=== PATIENT | female | born 1950 | race Caucasian/White ===

== ENCOUNTER 2016-06-10 09:39 | Emergency (ER) | payer OTHER, BC ==
[2016-06-10 09:45] VITALS: PULSE 88; TEMP 97.8; BMI 25.6
[2016-06-10] MEDS ORDERED: DIPHTH,PERTUSS(ACELL),TET 0.5 ML DISP.SYRIN IM ONE (10:43)
--- NOTE | 2016-06-10 10:48 | PDOC ---
[id number] TICK BITE Time Seen by Provider: 06/10/16 10:12 History Source: Patient Exam Limitations: No Limitations - History of Present Illness Initial Comments: 06/10/16 19:58 MY CHIEF COMPLAINT: piece of tick rt. mid abdomen History of Present ILLNESS: She is a 66-year-old female with history of hypertension here today due to finding a tick on her body 2 days ago. Patient reports that it could have been there since 06/06/2016 when she was working in her garden. Patient tried to remove the tick however tiny piece of it was remaining. Patient thinks that the tick could have been there greater than 48 hours and was engorged. Patient denies any rash. Timing/Duration: other (tick bite rt. lateral abdomen tiny piece remaining ) Severity: mild Associated Symptoms: reports: other (rt. lateral abdomen tiny piece bite tick embedded ) Past History - Past Medical History Allergies/Adverse Reactions: Allergies Allergy/AdvReac Type Severity Reaction Status Date / Time Penicillins Allergy Verified 06/10/16 09:40 Home Medications: Ambulatory Orders Hydrochlorothiazide [Hctz -] 12.5 mg PO DAILY 11/15/15 Atorvastatin Ca [Lipitor] 20 mg PO HS 06/10/16 Doxycycline Hyclate [Vibramycin -] 200 mg PO ONCE #2 cap 06/10/16 Anemia: No Asthma: No Cancer: No Cardiac Disorders: No CVA: No COPD: No CHF: No Dementia: No Diabetes: No GI Disorders: No Disorders: No HTN: Yes Hypercholesterolemia: Yes Liver Disease: No Seizures: No Thyroid Disease: No - Surgical History Abdominal Surgery: No Appendectomy: No Cardiac Surgery: No Cholecystectomy: No Lung Surgery: No Neurologic Surgery: No Orthopedic Surgery: Yes (ARTHROSCOPY) - Psycho/Social/Smoking Cessation Hx Anxiety: No Suicidal Ideation: No Smoking History: Never smoked Have you smoked in the past 12 months: No Information on smoking cessation initiated: No Hx Alcohol Use: No Drug/Substance Use Hx: No Substance Use Type: None Hx Substance Use Treatment: No Review of Systems - Review of Systems Able to Perform ROS?: Yes Constitutional: No: Symptoms Reported HEENTM: No: Symptoms Reported Respiratory: No: Symptoms reported Cardiac (ROS): No: Symptoms Reported ABD/GI: No: Symptoms Reported : No: Symptoms Reported Musculoskeletal: No: Symptoms Reported Integumentary: Yes: Other (tiny piece of tick remaining rt. lateral abdomen slightly raised erythematous area surrounding approx 1 cm diameter) *Physical Exam - Vital Signs Last Vital Signs Temp Pulse Resp BP Pulse Ox 97.8 F 88 18 160/100 100 06/10/16 09:41 06/10/16 09:41 06/10/16 09:41 06/10/16 09:41 06/10/16 09:41 - Physical Exam General Appearance: Yes: Appropriately Dressed Respiratory/Chest: positive: Lungs Clear, Normal Breath Sounds Cardiovascular: positive: Regular Rhythm, Regular Rate, S1, S2 Integumentary: positive: Other (area of erythema slightly raised approx 1 cm diameter, with tiny piece of tick remaining) Neurologic: positive: Alert, Normal Response, Responsive Procedures - Consent Consent obtained: From Patient - Additional Procedures Progress: 06/10/16 10:52 rt. lateral abdomen slightly raised 1 cm diameter with tiny piece of tick remaining, cleansed with betadine tiny piece of tick removed with 18 gauge of needle than cleansed with Betadine and normal saline 0.9%. Dried 06/10/16 10:53 06/10/16 20:02 Medical Decision Making - Medical Decision Making 06/10/16 20:01 She is a 66-year-old female with history of hypertension here today due to finding a tick on her body 2 days ago. Patient reports that it could have been there since 06/06/2016 when she was working in her garden. Patient tried to remove the tick however tiny piece of it was remaining. Patient thinks that the tick could have been there greater than 48 hours and was engorged. Patient denies any rash. remaining piece of tick removed rt. mid abdomen PLAN: removed piece tick from mid abdomen doxycycline 200 mg once prophlactically *DC/Admit/Observation/Transfer Diagnosis at time of Disposition: Tick bite of abdominal wall Qualifiers: Encounter type: initial encounter Qualified Code(s): S30.861A - Insect bite ( nonvenomous) of abdominal wall, initial encounter - Discharge Dispostion Disposition: HOME Condition at time of disposition: Stable - Prescriptions Prescriptions: Doxycycline Hyclate [Vibramycin -] 200 mg PO ONCE #2 cap - Referrals Referrals: Shadi Purcell MD [Primary Care Provider] - - Patient Instructions Additional Instructions: Cleanse area were tick bite was with antibacterial soap and water twice daily until healed Follow-up with your primary care provider for further evaluation and treatment Return here if any fever or increased redness or discharge from area where tick bite was removed today Patient voiced understanding of discharge instructions and all questions were answered
[2016-06-10 10:58] VITALS: BP 137/91
== END 2016-06-10 11:15 | disposition home or self-care (01) ==
LOC: JERFT 09:39
PROC: 3E0234Z Introduction of Serum, Toxoid and Vaccine into Muscle, Percutaneous Approach (ICD-10-PCS; principal; 2016-06-10)
DX: S30.861A Insect bite (nonvenomous) of abdominal wall, initial encounter (principal); W57.XXXA Bitten or stung by nonvenomous insect and other nonvenomous arthropods, initial encounter; Y93.H2 Activity, gardening and landscaping; Y92.017 Garden or yard in single-family (private) house as the place of occurrence of the external cause
CPT/HCPCS: 90471; 90715; 99281-25

== ENCOUNTER 2016-09-07 14:25 | Emergency (ER) | payer OTHER, BC ==
[2016-09-07 14:46] VITALS: BP 117/85; PULSE 88; TEMP 98; BMI 25.4
[2016-09-07] MEDS ORDERED: DOXYCYCLINE HYCLATE 100 MG CAPSULE PO ONE ×2 (15:26→15:31)
--- NOTE | 2016-09-07 15:34 | PDOC ---
History of Present Illness - General Chief Complaint: Bite Stated Complaint: TICK BITE Time Seen by Provider: 09/07/16 14:56 History Source: Patient - History of Present Illness Timing/Duration: reports: other Location: reports: other (chest) Respiratory Risk Factors: reports: insect bite Past History - Past Medical History Allergies/Adverse Reactions: Allergies Allergy/AdvReac Type Severity Reaction Status Date / Time Penicillins Allergy Verified 09/07/16 14:46 Home Medications: Ambulatory Orders Hydrochlorothiazide [Hctz -] 12.5 mg PO DAILY 11/15/15 Atorvastatin Ca [Lipitor] 20 mg PO HS 06/10/16 Anemia: No Asthma: No Cancer: No Cardiac Disorders: No CVA: No COPD: No CHF: No Dementia: No Diabetes: No GI Disorders: No Disorders: No HTN: Yes Hypercholesterolemia: Yes Liver Disease: No Seizures: No Thyroid Disease: No - Surgical History Abdominal Surgery: No Appendectomy: No Cardiac Surgery: No Cholecystectomy: No Lung Surgery: No Neurologic Surgery: No Orthopedic Surgery: Yes (ARTHROSCOPY) - Psycho/Social/Smoking Cessation Hx Anxiety: No Suicidal Ideation: No Smoking History: Never smoked Have you smoked in the past 12 months: No Information on smoking cessation initiated: No Hx Alcohol Use: No Drug/Substance Use Hx: No Substance Use Type: None Hx Substance Use Treatment: No Review of Systems - Review of Systems Constitutional: No: Chills, Fever, Malaise, Weakness Neurological: No: Headache, Dizziness *Physical Exam - Vital Signs Last Vital Signs Temp Pulse Resp BP Pulse Ox 98.0 F 88 18 117/85 100 09/07/16 14:42 09/07/16 14:42 09/07/16 14:42 09/07/16 14:42 09/07/16 14:42 - Physical Exam General Appearance: Yes: Appropriately Dressed. No: Apparent Distress HEENT: positive: Normal Voice Neck: positive: Supple Respiratory/Chest: positive: Other (localized erythema to R upper chest). negative: Respiratory Distress Integumentary: positive: Dry, Warm. negative: Rash Neurologic: positive: Fully Oriented, Alert, Normal Mood/Affect Medical Decision Making - Medical Decision Making 09/07/16 15:26 66 yo F, h/o HTN, HLD, presents to ED for evaluation after tick bite. Pt states [place] and 2 days ago, noticed tick embedded in R chest which she was able to remove intact as per pt. Does not known how long tick was embedded in skin. Denies any acute medical complaints at this time. See exam S/p tick bite w/ removal 48 hrs ago Asymptomatic at this time Local erythema to site of bite -1 dose doxy in ED empirically as pt meets all criteria (i.e unsure how long tick was embedded, removal within 72 hrs, etc) 09/07/16 15:37 *DC/Admit/Observation/Transfer Diagnosis at time of Disposition: Tick bite Qualifiers: Encounter type: initial encounter Qualified Code(s): W57.XXXA - Bitten or stung by nonvenomous insect and other nonvenomous arthropods, initial encounter - Discharge Dispostion Disposition: HOME Condition at time of disposition: Good - Patient Instructions Printed Discharge Instructions: How to Remove a Tick Additional Instructions: Continue to follow up with your PMD Return to ED for worsening of symptoms
== END 2016-09-07 15:38 | disposition home or self-care (01) ==
LOC: JERFT 14:25
DX: S20.361A Insect bite (nonvenomous) of right front wall of thorax, initial encounter (principal); W57.XXXA Bitten or stung by nonvenomous insect and other nonvenomous arthropods, initial encounter; Y93.89 Activity, other specified; Y92.89 Other specified places as the place of occurrence of the external cause; I10 Essential (primary) hypertension; E78.00 Pure hypercholesterolemia, unspecified
CPT/HCPCS: 99281-25

== ENCOUNTER 2016-09-22 13:58 | Emergency (ER) | payer OTHER, BC ==
[2016-09-22 14:05] VITALS: BP 135/87; PULSE 96; TEMP 97.8; BMI 28.3
--- NOTE | 2016-09-22 14:38 | PDOC ---
History of Present Illness - General Chief Complaint: Bite Stated Complaint: TICK BITE Time Seen by Provider: 09/22/16 14:31 History Source: Patient Exam Limitations: No Limitations - History of Present Illness Initial Comments: 09/22/16 14:32 CHIEF COMPLAINT: Tick bite to the right posterior leg. HISTORY OF PRESENT ILLNESS: Patient is a 66 y/o female with history of HTN and high cholesterol. Pt presents for treatment for tick bite to the right posterior leg. Patient was able to pull the tick off, body and head intact. Unknown time that tick was on her. No rash or pains noted. Past History - Past Medical History Allergies/Adverse Reactions: Allergies Allergy/AdvReac Type Severity Reaction Status Date / Time Penicillins Allergy Verified 09/07/16 14:46 Home Medications: Ambulatory Orders Hydrochlorothiazide [Hctz -] 12.5 mg PO DAILY 11/15/15 Atorvastatin Ca [Lipitor] 20 mg PO HS 06/10/16 Doxycycline Hyclate 200 mg PO ONCE #2 capsule 09/22/16 Anemia: No Asthma: No Cancer: No Cardiac Disorders: No CVA: No COPD: No CHF: No Dementia: No Diabetes: No GI Disorders: No Disorders: No HTN: Yes Hypercholesterolemia: Yes Liver Disease: No Seizures: No Thyroid Disease: No - Surgical History Abdominal Surgery: No Appendectomy: No Cardiac Surgery: No Cholecystectomy: No Lung Surgery: No Neurologic Surgery: No Orthopedic Surgery: Yes (ARTHROSCOPY) - Psycho/Social/Smoking Cessation Hx Anxiety: No Suicidal Ideation: No Smoking History: Never smoked Have you smoked in the past 12 months: No Information on smoking cessation initiated: No Hx Alcohol Use: No Drug/Substance Use Hx: No Substance Use Type: None Hx Substance Use Treatment: No Review of Systems - Review of Systems Constitutional: No: Symptoms Reported Respiratory: No: Symptoms reported Musculoskeletal: No: Symptoms Reported Integumentary: No: Symptoms Reported, Bruising, Erythema Neurological: No: Symptoms reported Hematologic/Lymphatic: No: Symptoms Reported All Other Systems: Reviewed and Negative *Physical Exam - Vital Signs Last Vital Signs Temp Pulse Resp BP Pulse Ox 97.8 F 96 H 18 135/87 100 09/22/16 14:03 09/22/16 14:03 09/22/16 14:03 09/22/16 14:03 09/22/16 14:03 - Physical Exam General Appearance: Yes: Appropriately Dressed. No: Apparent Distress Neck: negative: Tender lateral, Tender midline Respiratory/Chest: positive: Normal Breath Sounds, Respiratory Distress Lymphatic: negative: Adenopathy Extremity: positive: Normal Capillary Refill, Normal Inspection Integumentary: positive: Normal Color, Other (small puncture wound to the right posterior knee, with no erythema or rash. ). negative: Erythema, Hives, Petechiae, Rash, Swelling, Ecchymosis, Bruising Neurologic: positive: Alert, Normal Mood/Affect Medical Decision Making - Medical Decision Making 09/22/16 14:52 A/P : tick bite, no erythema, edema, rash. No joint pain Tick was on her leg unknown time, could be greater then 36 hours. Will treat with Doxy 200 mg PO x 1. Follow up with infectious disease and PMD. *DC/Admit/Observation/Transfer Diagnosis at time of Disposition: Tick bite Qualifiers: Encounter type: initial encounter Qualified Code(s): W57.XXXA - Bitten or stung by nonvenomous insect and other nonvenomous arthropods, initial encounter - Discharge Dispostion Disposition: HOME Condition at time of disposition: Stable Admit: No - Prescriptions Prescriptions: Doxycycline Hyclate 200 mg PO ONCE #2 capsule - Referrals Referrals: Shadi Purcell MD [Primary Care Provider] - - Patient Instructions Printed Discharge Instructions: How to Remove a Tick Additional Instructions: Recommend follow-up with primary care doctor if rash, joint pain, or any other concerns return to ER
== END 2016-09-22 14:44 | disposition home or self-care (01) ==
LOC: JERFT 13:58
DX: S80.861A Insect bite (nonvenomous), right lower leg, initial encounter (principal); W57.XXXA Bitten or stung by nonvenomous insect and other nonvenomous arthropods, initial encounter; Y93.89 Activity, other specified; Y92.89 Other specified places as the place of occurrence of the external cause; I10 Essential (primary) hypertension; E78.00 Pure hypercholesterolemia, unspecified
CPT/HCPCS: 99281-25

== ENCOUNTER 2016-11-29 12:52 | Emergency (ER) | payer OTHER, BC ==
[2016-11-29 13:02] VITALS: TEMP 97.4; BMI 24.7
--- NOTE | 2016-11-29 13:51 | PDOC ---
History of Present Illness - General Chief Complaint: Bite Stated Complaint: BITE Time Seen by Provider: 11/29/16 13:34 History Source: Patient Exam Limitations: No Limitations - History of Present Illness Initial Comments: CHIEF COMPLAINT: 66 y/o afebrile female with PMH HTN, HLD c/o multiple itchy, painful bee stings. HISTORY OF PRESENT ILLNESS: The patient was working in her garden last night when she accidentally shoved up a beehive. She states she got multiple stings and now her feet are swollen and she has 2 red, painful areas on her right arm and leg. She took 1 benadryl last night but states it didn't help much. She denies facial swelling, lip/tongue swelling, cough, difficulty breathing, SOB and all other symptoms. PCP is Dr. Purcell. Vital signs on arrival are significant for BP of 179/118. REVIEW OF SYSTEMS: GENERAL/CONSTITUTIONAL: No fever/chills. No weakness. No weight change. HEAD, EYES, EARS, NOSE AND THROAT: No change in vision. No ear pain or discharge. No sore throat. CARDIOVASCULAR: No chest pain or shortness of breath. RESPIRATORY: No cough, wheezing, or hemoptysis. GASTROINTESTINAL: No abd pain, nausea, vomiting, diarrhea. GENITOURINARY: No dysuria, frequency, or change in urination. MUSCULOSKELETAL: No joint or muscle swelling or pain. No neck or back pain. SKIN: Painful, itchy rash to right arm, leg and both feet. NEUROLOGIC: No headache, vertigo, loss of consciousness, or loss of sensation. PHYSICAL EXAM: GENERAL: The patient is awake, alert, and fully oriented, in no acute distress. She is well appearing, ambulatory, in NAD or obvious discomfort. HEAD: Normal with no signs of trauma. EYES: Pupils equal, round and reactive to light, extraocular movements intact, sclera anicteric, conjunctiva clear. No angioedema. No lip or tongue swelling. LUNGS: CTA EXTREMITIES: Normal range of motion, no edema. NEUROLOGICAL: Normal speech, normal gait. SKIN: 2 erythematous welts to right dorsal, lateral foot with moderate surrounding edema. Macular, band like rash on posterior right calf and posterior right arm. No streaking. Past History - Past Medical History Allergies/Adverse Reactions: Allergies Allergy/AdvReac Type Severity Reaction Status Date / Time Penicillins Allergy Intermediate Rash Verified 11/29/16 12:57 Home Medications: Ambulatory Orders Hydrochlorothiazide [Hctz -] 12.5 mg PO DAILY 11/15/15 Atorvastatin Ca [Lipitor] 20 mg PO HS 06/10/16 Prednisone [Deltasone -] 40 mg PO DAILY #6 tablet 11/29/16 Anemia: No Asthma: No Cancer: No Cardiac Disorders: No CVA: No COPD: No CHF: No Dementia: No Diabetes: No GI Disorders: No Disorders: No HTN: Yes Hypercholesterolemia: Yes Liver Disease: No Seizures: No Thyroid Disease: No - Surgical History Abdominal Surgery: No Appendectomy: No Cardiac Surgery: No Cholecystectomy: No Lung Surgery: No Neurologic Surgery: No Orthopedic Surgery: Yes (ARTHROSCOPY) - Immunization History Immunization Up to Date: No - Psycho/Social/Smoking Cessation Hx Anxiety: No Suicidal Ideation: No Smoking History: Never smoked Have you smoked in the past 12 months: No Hx Alcohol Use: No Drug/Substance Use Hx: No Substance Use Type: None Hx Substance Use Treatment: No *Physical Exam - Vital Signs Last Vital Signs Temp Pulse Resp BP Pulse Ox 97.4 F L 72 18 179/118 99 11/29/16 12:57 11/29/16 12:57 11/29/16 12:57 11/29/16 12:57 11/29/16 12:57 Medical Decision Making - Medical Decision Making A/P: 66 y/o afebrile female with painful, itchy rash from bee stings yesterday. Plan is as follows: 1. IM decadron 2. Repeat blood pressure The patient's blood pressure has come down a bit but is still high. She does admit she didn't sleep last night secondary to pain. She has taken her BP medication today and denies AGRAWAL, neck pain, changes in vision/hearing. She does also admit her pain/itching have improved. Will discharge to home with short course of prednisone to fill only if symptoms do not improve with the decadron. Instructed the patient to return to the ER with any worsening or concerning symptoms. The patient verbalizes understanding of all instructions, has no further questions and is awaiting discharge. *DC/Admit/Observation/Transfer Diagnosis at time of Disposition: Bee sting reaction Qualifiers: Encounter type: initial encounter Injury intent: accidental or unintentional Qualified Code(s): T63.441A - Toxic effect of venom of bees, accidental ( unintentional), initial encounter - Discharge Dispostion Disposition: HOME Condition at time of disposition: Improved - Prescriptions Prescriptions: Prednisone [Deltasone -] 40 mg PO DAILY #6 tablet - Referrals Referrals: Shadi Purcell MD [Primary Care Provider] - Call tomorrow - Patient Instructions Printed Discharge Instructions: DI for Insect Bites and Stings, How to Care for an Insect Bite or Sting Additional Instructions: Discharge Instructions: -Fill the prescription for Prednisone if symptoms worsen -Follow up with Dr. Purcell next week -Take Benadryl or use benadryl cream for itching -Return to the ER with any worsening or concerning symptoms
[2016-11-29] MEDS ORDERED: DEXAMETHASONE SOD PHOSPHATE 10 MG/1 ML VIAL IM ONE (13:56)
[2016-11-29] MEDS ORDERED: DEXAMETHASONE SOD PHOSPHATE 10 MG/1 ML VIAL ONE (13:59)
[2016-11-29 14:28] VITALS: PULSE 70
[2016-11-29 14:55] VITALS: BP 186/86
== END 2016-11-29 15:01 | disposition home or self-care (01) ==
LOC: JERFT 12:52
PROC: 3E0233Z Introduction of Anti-inflammatory into Muscle, Percutaneous Approach (ICD-10-PCS; principal; 2016-11-29)
DX: L25.8 Unspecified contact dermatitis due to other agents (principal); T63.441A Toxic effect of venom of bees, accidental (unintentional), initial encounter; Y92.017 Garden or yard in single-family (private) house as the place of occurrence of the external cause; I10 Essential (primary) hypertension; E78.00 Pure hypercholesterolemia, unspecified
CPT/HCPCS: 96372; 99281-25

== ENCOUNTER 2017-01-21 14:33 | Emergency (ER) | payer OTHER, BC ==
[2017-01-21 15:15] VITALS: BP 120/63; PULSE 81; TEMP 98.3; BMI 24.7
--- NOTE | 2017-01-21 15:23 | PDOC ---
History of Present Illness - General Chief Complaint: Injury Stated Complaint: FALL Time Seen by Provider: 01/21/17 14:37 History Source: Patient, Spouse () - History of Present Illness Initial Comments: 01/21/17 15:20 Patient is a 66 year old female with PMH oif HTN and HLD is presenting to ED with left forearm and elbow pain after a mechanical trip and fall onto an outstretched hand. Patient claims she was walking with her granddaughter when she stumbled and fell, breaking her fall with her left hand. Endorses left forearm and elbow pain, denies loc, dizziness, palpitations, striking head on fall, back pain, neck pain, leg pain and amnesia. Patient remembers the entire fall and denies trauma to any part of her body other than her left upper extremity. Gustabo endorsed brief dizziness immediately after the fall but denies confusion, headache, changes to vision, changes to hearing, Markell's partially confirmed patient's account of events. Although he was walking ahead of patient and did not witness the actual fall, he turned immediately after the fall and witnessed the patient attending to their granddaughter. Past History - Past Medical History Allergies/Adverse Reactions: Allergies Allergy/AdvReac Type Severity Reaction Status Date / Time Penicillins Allergy Intermediate Rash Verified 01/21/17 15:15 Home Medications: Ambulatory Orders Atorvastatin Ca [Lipitor] 20 mg PO HS 06/10/16 Amlodipine Besylate [Norvasc -] 5 mg PO DAILY 01/21/17 Anemia: No Asthma: No Cancer: No Cardiac Disorders: No CVA: No COPD: No CHF: No Dementia: No Diabetes: No GI Disorders: No Disorders: No HTN: Yes Hypercholesterolemia: Yes Liver Disease: No Seizures: No Thyroid Disease: No - Surgical History Abdominal Surgery: No Appendectomy: No Cardiac Surgery: No Cholecystectomy: No Lung Surgery: No Neurologic Surgery: No Orthopedic Surgery: Yes (ARTHROSCOPY) - Immunization History Immunization Up to Date: No - Suicide/Smoking/Psychosocial Hx Smoking History: Unknown if ever smoked Have you smoked in the past 12 months: No Information on smoking cessation initiated: No Hx Alcohol Use: No Drug/Substance Use Hx: No Substance Use Type: None Hx Substance Use Treatment: No Review of Systems - Review of Systems Able to Perform ROS?: Yes Comments:: GEN: Denies fever, chills, recent illness HEENTM: Denies neck pain, changes in vision, changes in hearing, ear pain, tinnitus Respiratory: Denies shortness of breath Cardiac: Denies chest pain, palpitations, lightheadedness, diaphoresis ABD/GI: Denies abdominal pain, nausea, vomiting, diarrhea, constipation : Denies dysuria, burning on urination, increased frequency of urination Musculoskeletal: Endorses pain to left proximal forearm and elbow; Denies pain and swelling, lacerations, abrasions Neurological: Denies AGRAWAL, weakness, current dizziness, loss of consciousness, tingling, numbness Hematologic/Lymphatic: Denies anemia, easy bleeding, history of blood clots. All Other Systems Reviewed and Negative Is the patient limited Irish proficient: No *Physical Exam - Vital Signs Last Vital Signs Temp Pulse Resp BP Pulse Ox 98.3 F 81 18 120/63 100 01/21/17 14:33 01/21/17 14:33 01/21/17 14:33 01/21/17 14:33 01/21/17 14:33 - Physical Exam Comments: GENERAL: AAOx3, nourished and generally well appearing, NAD HEAD: NCAT, no bruising, lacerations or abrasions, no erythema or edema EYES: PERRLA, EOMI, sclera anicteric, conjunctiva clear ENT: Auricles normal inspection, hearing grossly normal, nares patent, no nasal discharge, no congestion, oropharynx clear without exudates, MMM NECK: supple, no cervical tenderness, full ROM without tenderness, no LAD, no JVD, no masses RESP: speaking in full sentences, lungs CTAB, symmetrical chest expansion, no respiratory distress HEART: RRR, normal S1-S2, no MRG, peripheral pulses normal and equal bilaterally ABDOMEN: soft, NTND, no guarding, no rebound, no masses MUSCULOSKELETAL: no CVA Tenderness, left proximal forearm and elbow ttp, tender with both active and passive ROM, wrist not ttp, no tenderness at anatomical snuffbox, no tenderness on axial loading of thumb, arm and hand well perfussed with no loss of sensation in hand or fingers, neurovascularly intact, no lacerations, samall (5vdq1md superficial abrasion to thenar eminence) EXTREMITIES: normal inspection, moving all extremities, full ROM, strength 5/5, sensation grossly intact NEUROLOGICAL: CN II-XII grossly intact, normal speech, normal gait, no focal sensorimotor deficits, finger nose wnl, MICHAEL wnl SKIN: warm, dry, normal turgor, no rashes or lesions noted. ED Treatment Course - RADIOLOGY Radiology Studies Ordered: [id number] RAD/ELBOW-LEFT [id number] RAD/FOREARM- LEFT Arm pain. X-ray of the left elbow, 3 views. The alignment is satisfactory without evidence of a fracture or dislocation. No gross joint effusions identified. Impression: No acute fracture or dislocation is identified Left forearm, 2 views The alignment is satisfactory. Without evidence of a fracture or dislocation. There is mild soft tissue swelling in the proximal forearm, dorsally Impression: No acute fracture or dislocation are identified Medical Decision Making - Medical Decision Making 01/21/17 15:50 66 year old female with PMH significant for well controlled HTN and HLD presenting with left arm pain after a mechanical trip and fall. Proximal forearm is ttp. no deformities, edema, erythems. Pain on active and passive ROM. Neurovascular intact, no wrist pain on palpation or at snuffbox or on axial loading of the first digit. Ddx includes arm fracture, intracranial hemorrhage, neuro or cardio inciting event Evaluate with plain films of the elbow and forearm. monitor in ED and reevaluate History from patient and witnesses consistent with mechanical fall, reassuring for inciting event. 01/21/17 16:31 Only on reevaluation did patient endorse dizziness after falling. States she is feeling fine and does not want further workup. She lives with who was with patient during fall. He was walking ahead of his and did not witness the actual fall but was able to assess the patient right after the fall. He states the patient was dizzy for a few minutes but did not lose consciousness, have any sign of hitting her head, wasn't disoriented or speaking with slurred speech. He agrees to closely monitor patient and return to the emergency department if there are any concerning symptoms. Strict return precations were given and verbal understanding acknowledged by both patient and patient's . *DC/Admit/Observation/Transfer Diagnosis at time of Disposition: Elbow sprain Qualifiers: Encounter type: initial encounter Laterality: left Qualified Code(s): S53.402A - Unspecified sprain of left elbow, initial encounter - Discharge Dispostion Disposition: HOME Condition at time of disposition: Stable Admit: No - Referrals Referrals: Shadi Purcell MD [Primary Care Provider] - - Patient Instructions Printed Discharge Instructions: Elbow Sprain Additional Instructions: Your xrays do not show any fractures or dislocations. Be aware that you may experience an increase in the pain in your arm and body tomorrow. As we discussed, you need to follow up with your primary physician this week for further evaluation of why you became dizzy. Until that time, make sure you are around people who can monitor you. If you experience significant worsening of your pain or any new or concerning symptoms including headache, confusion or lethargy, please return to the emergency department immediately.
--- NOTE | 2017-01-21 16:16 | PDOC ---
Attending Attestation - Resident Resident Name: Kaci Dominguezn - ED Attending Attestation I have performed the following: I have examined & evaluated the patient, The case was reviewed & discussed with the resident, I agree w/resident's findings & plan, Exceptions are as noted - HPI HPI: 01/21/17 16:08 This patient is a 66-year-old female with a prior history of hypertension and HLD who presents emergency department s/p mechanical trip and fall Pt fell on to her left elbow Denies head trauma Pt denies headache, blurry vision, nausea, vomiting No focal weakness or numbness - Physicial Exam PE: 01/21/17 16:11 GENERAL: The patient is in no acute distress, tearful on examination. HEAD: Normal with no signs of trauma. EYES: PERRLA, EOMI, sclera anicteric, conjunctiva clear. ENT: Ears normal, nares patent, oropharynx clear without exudates. Moist mucous membranes. NECK: Normal range of motion, supple without lymphadenopathy, JVD, or masses. LUNGS: Breath sounds equal, clear to auscultation bilaterally. No wheezes, and no crackles. HEART:Regular rate and rhythm, normal S1 and S2 without murmur, rub or gallop. ABDOMEN: Soft, nontender, normoactive bowel sounds. No guarding, no rebound. No masses palpable. EXTREMITIES: Left elbow tender to palpation, extends fully, unable to flex fully , no abrasions, no edema NEUROLOGICAL: Cranial nerves II through XII grossly intact. Normal speech. No focal neurological deficits. 2+ RP, 2+ UP Sensation intact hand R/M/U motor and sensation in tact MUSCULOSKELETAL: Back non-tender to palpation, no CVA tenderness SKIN: Warm, Dry, normal turgor, no rashes or lesions noted. - Medical Decision Making 01/21/17 16:16 66-year-old female status post fall from standing on to left elbow (+) pain (+) swelling Pain limiting range of motion Xray Pt refusing pain medications
== END 2017-01-21 17:50 | disposition home or self-care (01) ==
LOC: JER 14:33
DX: S53.402A Unspecified sprain of left elbow, initial encounter (principal); W01.0XXA Fall on same level from slipping, tripping and stumbling without subsequent striking against object, initial encounter; Y93.01 Activity, walking, marching and hiking; Y92.9 Unspecified place or not applicable
CPT/HCPCS: 73070-TC-LT; 73090-TC-LT; 99282-25

== ENCOUNTER 2017-10-05 10:46 | Emergency (ER) | payer OTHER, BC ==
[2017-10-05 10:58] VITALS: BP 141/81; PULSE 85; TEMP 98.1; BMI 24.2
--- NOTE | 2017-10-05 11:52 | PDOC ---
History of Present Illness - General Chief Complaint: Lightheaded Stated Complaint: DIZZINESS Time Seen by Provider: 10/05/17 10:51 - History of Present Illness Initial Comments: 10/05/17 11:45 "Patient is a 67 year old female with PMHx of HTN, HLD who was BIBA and presents with dizziness. 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 Afterwards, she immediately went to lay down on her bed. Pt now feels much better. She states that the dizziness was initially a room-spinning sensation. However, the room-spinning sensation has since resolved, and pt now states she feels "lightheaded". She states that her current dizziness has markedly improved since it first began. Pt reports she feels thirsty and dehydrated. States she only had coffee this morning. She denies loss of consciousness, chest pain, shortness of breath, weakness, numbness, slurred speech, headache, vision changes, ear pain, or hearing issues. She denies fever, chills, vomitting, diarrhea, constipation. Allergies: penicillin Social Hx: Former smoker PCP: Maggy Bradshaw. " Past History - Past Medical History Allergies/Adverse Reactions: Allergies Allergy/AdvReac Type Severity Reaction Status Date / Time Penicillins Allergy Intermediate Rash Verified 10/05/17 10:55 Home Medications: Ambulatory Orders Atorvastatin Ca [Lipitor] 20 mg PO DAILY 06/10/16 Amlodipine Besylate [Norvasc -] 5 mg PO DAILY 01/21/17 Anemia: No Asthma: No Cancer: No Cardiac Disorders: No CVA: No COPD: No CHF: No Dementia: No Diabetes: No GI Disorders: No Disorders: No HTN: Yes Hypercholesterolemia: Yes Liver Disease: No Seizures: No Thyroid Disease: No - Surgical History Abdominal Surgery: No Appendectomy: No Cardiac Surgery: No Cholecystectomy: No Lung Surgery: No Neurologic Surgery: No Orthopedic Surgery: Yes (ARTHROSCOPY) - Immunization History Immunization Up to Date: No - Suicide/Smoking/Psychosocial Hx Smoking History: Unknown if ever smoked Have you smoked in the past 12 months: No If you are a former smoker, when did you quit?: 10 Information on smoking cessation initiated: No Hx Alcohol Use: No Drug/Substance Use Hx: No Substance Use Type: None Hx Substance Use Treatment: No Review of Systems - Review of Systems Comments:: 10/05/17 11:52 """GENERAL/CONSTITUTIONAL: + lightheaded, No fever or chills. No weakness. HEAD, EYES, EARS, NOSE AND THROAT: No change in vision. No ear pain or discharge. No sore throat. CARDIOVASCULAR: No chest pain or shortness of breath. RESPIRATORY: No cough, wheezing, or hemoptysis. GASTROINTESTINAL: no vomiting, diarrhea or constipation. GENITOURINARY: No dysuria, frequency, or change in urination. MUSCULOSKELETAL: No joint or muscle swelling or pain. No neck or back pain. SKIN: No rash NEUROLOGIC: No headache, no loss of consciousness, or change in strength/ sensation. ENDOCRINE: No abnormal weight change. HEMATOLOGIC/LYMPHATIC: No anemia, easy bleeding, or history of blood clots. ALLERGIC/IMMUNOLOGIC: No hives or skin allergy. """ *Physical Exam - Vital Signs Last Vital Signs Temp Pulse Resp BP Pulse Ox 98.1 F 85 16 141/81 100 10/05/17 10:55 10/05/17 10:55 10/05/17 10:55 10/05/17 10:55 10/05/17 10:55 - Physical Exam Comments: 10/05/17 11:52 """GENERAL: Awake, alert, and fully oriented, in no acute distress. HEAD: No signs of trauma EYES: PERRLA, EOMI, sclera anicteric, conjunctiva clear ENT: Auricles normal inspection, hearing grossly normal, nares patent, oropharynx clear without exudates. Moist mucosa NECK: Nontender, no stepoffs, Normal ROM, supple, no lymphadenopathy, JVD, or masses LUNGS: Breath sounds equal, clear to auscultation bilaterally. No wheezes, and no crackles HEART: Regular rate and rhythm, normal S1 and S2, no murmurs, rubs or gallops ABDOMEN: Soft, nontender, normoactive bowel sounds. No guarding, no rebound. No masses EXTREMITIES: Normal range of motion, no edema. No clubbing or cyanosis. No cords, erythema, or tenderness NEUROLOGICAL: Cranial nerves II through XII intact. 5/5 strength and sensation in all extremities, Normal speech, normal gait, normal cerebellar function, normal tandem gait, no nystagmus SKIN: Warm, Dry, normal turgor, no rashes or lesions noted. """ ED Treatment Course - LABORATORY CBC & Chemistry Diagram: 10/05/17 11:38 10/05/17 11:38 - RADIOLOGY Radiology Studies Ordered: Category Date Time Status CHEST PA & LAT [RAD] Stat Radiology 10/05/17 11:17 Ordered Medical Decision Making - Medical Decision Making 10/05/17 11:52 67 F with dizziness after standing up from bent over position. Possibly orthostatic given onset after change in position. However, also consider vertigo given room-spinning sensation initially, though this has since resolved. If vertigo, likely peripheral given transient nature. Pt currently with no room-spinning, normal neuro exam with completely normal cerebellar function, making CVA unlikely. - Labs, trop - EKG - PO fluids - Reassess 10/05/17 13:03 Labs wnl CXR clear Pt reassessed - now feels completely better after fluids. Repeat neuro exam still non-focal. Pt ambulatory with steady gait. Pt is well appearing, with normal vitals. Clinically stable for DC at this time. I discussed the physical exam findings, ancillary test results and final diagnoses with the patient. I answered all of the patient's questions. The patient was satisfied with the care received and felt comfortable with the discharge plan and treatment plan. The patient agrees to follow up with the primary care physician within 24-72 hours. *DC/Admit/Observation/Transfer Diagnosis at time of Disposition: Vertigo - Discharge Dispostion Disposition: HOME - Referrals Referrals: Maggy Bradshaw [Primary Care Provider] - Walker Yang MD [Staff Physician] - - Patient Instructions Printed Discharge Instructions: DI for Vertigo Additional Instructions: You may have had vertigo today. Call the number provided to make an appointment with our ENT specialist for further evaluation. Your dizziness may have also been due to dehydration. Be sure to drink plenty of fluids. If you experience recurrent dizziness, lightheadedness, chest pain, shortness of breath, or any other concerning symptoms, return to the ER immediately. Otherwise, follow up with your primary doctor within 1-2 weeks for a check up. - Post Discharge Activity - Attestations Physician Attestion: 10/05/17 13:06 I, Dr. Francis Woodward MD, attest that this document has been prepared under my direction and personally reviewed by me in its entirety. I further attest, that it accurately reflects all work, treatment, procedures and medical decision -making performed by me.
[2017-10-05 12:07] LABS: BASO % 0.5 % (0-2.0); EOS % 0.9 % (0-4.5); HEMOGLOBIN 13.6 GM/dL (10.7-15.3); MCH 32.2 pg (25.7-33.7); MCHC 33.9 g/dl (32.0-36.0); MEAN PLT VOLUME 8.4 fl (7.5-11.1); NEUT % 58.6 % (42.8-82.8); PLATELET COUNT 262 K/MM3 (134-434); RBC 4.21 M/mm3 (3.60-5.2); RDW 12.9 % (11.6-15.6); WHITE BLOOD COUNT 4.3 K/mm3 (4.0-10.0)
[2017-10-05 12:23] LABS: ALBUMIN 3.8 g/dl (3.4-5.0); ANION GAP 7 (8-16); BLOOD UREA NITROGEN 17 mg/dL (7-18); CALCIUM 9.1 mg/dL (8.5-10.1); CHLORIDE 102 mmol/L (98-107); CO2 27 mmol/L (21-32); GLUCOSE,RANDOM 111 mg/dL (74-106); SGPT/ALT 29 U/L (12-78); SODIUM 136 mmol/L (136-145)
[2017-10-05 12:25] LABS: ALK PHOS 111 U/L (45-117); BILIRUBIN,TOTAL 0.7 mg/dL (0.2-1.0); TOT PROT 7.9 g/dl (6.4-8.2)
[2017-10-05 12:33] LABS: POTASSIUM 4.4 mmol/L (3.5-5.1); SGOT/AST 24 U/L (15-37)
[2017-10-05 12:34] LABS: CREATININE 0.7 mg/dL (0.55-1.02)
[2017-10-05 14:11] LABS: URINE APPEARANCE SLCLOUDY; URINE BILIRUBIN NEGATIVE (<2.0 mg/dL); URINE COLOR LTYELLOW; URINE GLUCOSE (UA) NEGATIVE (NEGATIVE); URINE KETONE NEGATIVE (NEGATIVE); URINE LEUK ESTERASE NEGATIVE (NEGATIVE); URINE NITRITE NEGATIVE (NEGATIVE); URINE PROTEIN NEGATIVE (NEGATIVE); URINE UROBILINOGEN NEGATIVE mg/dL (0.2-1.0)
--- NOTE | 2017-10-06 17:31 | EKG ---
Test Reason : Blood Pressure : / mmHG Vent. Rate : 080 BPM Atrial Rate : 080 BPM P-R Int : 170 ms QRS Dur : 090 ms QT Int : 394 ms P-R-T Axes : 076 -03 085 degrees QTc Int : 454 ms NORMAL SINUS RHYTHM POSSIBLE LEFT ATRIAL ENLARGEMENT NONSPECIFIC ST AND T WAVE ABNORMALITY ABNORMAL ECG WHEN COMPARED WITH ECG OF 19-AUG-2014 17:28, T WAVE VARIATION Confirmed by ABDI GRIFFITH, CHANTAL ([id number]) on 10/06/2017 5:31:31 PM Referred By: Confirmed By:CHANTAL PATTON MD
== END 2017-10-05 13:56 | disposition home or self-care (01) ==
LOC: JER 10:46
DX: R42 Dizziness and giddiness (principal); I10 Essential (primary) hypertension; E78.00 Pure hypercholesterolemia, unspecified
CPT/HCPCS: 36415; 71046-TC-FY; 80053; 81003; 82550; 84484; 85025; 87086; 93005; 93010; 99284-25

== ENCOUNTER → 2018-11-20 | Day surgery (SDC) | payer OTHER, BC ==
--- NOTE | 2018-11-24 14:02 | PATH ---
Surgical Pathology Report Patient Name: MARCUS JOHNSON [facility]. Rec. #: [id number] /Age/Gender: 1950 (Age: 68) / F Account: [id number] Location: Taken: 11/20/2018 Received: 11/20/2018 Reported: 11/24/2018 Physicians: Monica Simmons Specimen(s) Received RIGHT BREAST CORE 10:00 O'CLOCK 5cm FN Clinical History Ultrasound findings: Suspicious Final Diagnosis RIGHT BREAST MASS AT 10:00, 5 CM FN, BIOPSY: PREDOMINANTLY FATTY BREAST PARENCHYMA WITH FOCAL FIBROSIS. Electronically Signed Cynthia Gutierrez M.D. Gross Description Received in formalin labeled "right breast biopsy 10:00, 5 cmfn," is a 1.4 x 0.9 x 0.2 cm aggregate of multiple cardoza-yellow, irregular to cylindrical portions of fibroadipose tissue. The formalin is filtered and the specimen is entirely submitted in one cassette. Time to formalin fixation: 3 minutes Total formalin fixation time: Approximately 51 hours. /11/23/2018 [facility]/2018
== END | disposition home or self-care (01) ==
LOC: FRADUS-SUR 14:14
PROVIDERS: ATTEND Obstetrics & Gynecology
PROC: 0HBT3ZX Excision of Right Breast, Percutaneous Approach, Diagnostic (ICD-10-PCS; principal; 2018-11-20)
DX: N64.89 Other specified disorders of breast (principal); N63.11 Unspecified lump in the right breast, upper outer quadrant
CPT/HCPCS: 19083; 77065-TC; 87899; 88305-TC; A4648

== ENCOUNTER 2021-08-20 12:25 | Emergency (ER) | payer OTHER, BC ==
[2021-08-20 12:33] VITALS: BP 148/75; PULSE 85; TEMP 97.3; BMI 23.1
[2021-08-20] MEDS ORDERED: SODIUM CHLORIDE 0.9% 500 ML INFUS.BAG IV ONE (13:20)
[2021-08-20] MEDS ORDERED: LACTOBACILLUS ACIDOPHILUS 1 TABLET PO ONE (13:22)
[2021-08-20] MEDS ORDERED: DEXAMETHASONE SOD PHOSPHATE 10 MG/1 ML VIAL IVPUSH ONE (14:04)
[2021-08-20] MEDS ORDERED: REMDESIVIR 200 MG in SODIUM CHLORIDE 250 ML IVPB ONE ×2 (14:04→14:30)
[2021-08-20 14:47] LABS: BASO % 0.5 % (0-2.0); EOS % 0.2 % (0-4.5); HEMATOCRIT 37.9 % (32.4-45.2); HEMOGLOBIN 12.7 GM/dL (10.7-15.3); LYMPH % 38.7 % (8-40); MCH 31.9 pg (25.7-33.7); MCHC 33.6 g/dl (32.0-36.0); MEAN CELL VOLUME 94.9 fl (80-96); MEAN PLT VOLUME 8.3 fl (7.5-11.1); MONO % 13.1 % (3.8-10.2); NEUT % 47.5 % (42.8-82.8); PLATELET COUNT 240 10^3/uL (134-434); RBC 3.99 M/mm3 (3.60-5.2); RDW 12.2 % (11.6-15.6)
[2021-08-20 15:09] LABS: ALBUMIN 3.9 g/dl (3.4-5.0); CALCIUM 9.2 mg/dL (8.5-10.1)
[2021-08-20 15:10] LABS: BLOOD UREA NITROGEN 9.5 mg/dL (7-18); MAGNESIUM 2.4 mg/dL (1.8-2.4)
[2021-08-20 15:13] LABS: CREATININE 0.7 mg/dL (0.55-1.3)
[2021-08-20 15:15] LABS: BILIRUBIN,TOTAL 0.5 mg/dL (0.2-1); TOT PROT 7.2 g/dl (6.4-8.2)
== END 2021-08-20 16:36 | disposition home or self-care (01) ==
LOC: JER 12:25
DX: R19.7 Diarrhea, unspecified (principal)
CPT/HCPCS: 36415; 80053; 83735; 85025; 87040; 87045; 87046; 87205; 87324; 87449; 99284-25

== ENCOUNTER 2021-08-24 04:26 | Day surgery (SDC) | payer OTHER, BC ==
[2021-08-22 14:38] VITALS: BMI 23.1
[2021-08-24 11:33] VITALS: TEMP 97.5
[2021-08-24 12:44] VITALS: BP 117/61; PULSE 58
== END 2021-08-24 12:35 | disposition home or self-care (01) ==
LOC: JASU-ENDO 04:26
PROVIDERS: ATTEND Internal Medicine Gastroenterology
PROC: 0DBN8ZX Excision of Sigmoid Colon, Via Natural or Artificial Opening Endoscopic, Diagnostic (ICD-10-PCS; 2021-08-24)
PROC: 0DBP8ZX Excision of Rectum, Via Natural or Artificial Opening Endoscopic, Diagnostic (ICD-10-PCS; 2021-08-24)
PROC: 0DBF8ZX Excision of Right Large Intestine, Via Natural or Artificial Opening Endoscopic, Diagnostic (ICD-10-PCS; 2021-08-24)
PROC: 0DBB8ZX Excision of Ileum, Via Natural or Artificial Opening Endoscopic, Diagnostic (ICD-10-PCS; 2021-08-24)
PROC: 0DBH8ZX Excision of Cecum, Via Natural or Artificial Opening Endoscopic, Diagnostic (ICD-10-PCS; principal; 2021-08-24 11:00)
DX: Z12.11 Encounter for screening for malignant neoplasm of colon (principal); K52.9 Noninfective gastroenteritis and colitis, unspecified; K57.30 Diverticulosis of large intestine without perforation or abscess without bleeding; K64.8 Other hemorrhoids; Z86.010 Personal history of colon polyps
CPT/HCPCS: 87045; 87046; 87177; 87186; 87209; 88305-TC

== ENCOUNTER 2021-09-20 08:43 | Emergency (ER) | payer OTHER, BC ==
[2021-09-20 09:01] VITALS: BP 134/74; PULSE 92; TEMP 98.3; BMI 23.3
[2021-09-25 14:13] LABS: BABESIA MICROTI ANTIBODY IGG <1:10 (Neg:<1:10); BABESIA MICROTI ANTIBODY IGM <1:10 (Neg:<1:10)
== END 2021-09-20 10:17 | disposition home or self-care (01) ==
LOC: JER 08:43 → JERFT 08:43
DX: R21 Rash and other nonspecific skin eruption (principal)
CPT/HCPCS: 36415; 86618; 86666; 86753; 99283-25